=== PATIENT | female | born 1990 | race Caucasian/White ===

== ENCOUNTER 2019-12-21 11:59 | Inpatient (IN) | payer OTHER ==
[~2019-12-21 11:59] MED LIST: Bupivacaine/Epinephrine 0.25% 30 ML VIAL ONE
[2019-12-21 12:40] VITALS: BMI 40.2
[2019-12-21] MEDS ORDERED: hydrALAZINE 20 MG/ML VIAL SLOW IVP PRN ×3 (13:21→23:58)
[2019-12-21] MEDS ORDERED: Lidocaine 1% (PF) 30 ML VIAL SC PRN (13:21)
[2019-12-21] MEDS ORDERED: Ibuprofen 800 MG TAB PO PRN (13:21)
[2019-12-21] MEDS ORDERED: Ondansetron PF 4 MG/2 ML Vial IVP PRN ×3 (13:21→23:58)
[2019-12-21] MEDS ORDERED: Butorphanol Tartrate 1 MG/ML VIAL SLOW IVP PRN (13:21)
[2019-12-21] MEDS ORDERED: Promethazine HCl 25 MG/ML VIAL IM PRN ×2 (13:21→18:12)
[2019-12-21] MEDS ORDERED: HYDROcodone/Acetaminophen 5/325 mg Tablet PO PRN ×4 (13:21→23:58)
--- NOTE | 2019-12-21 13:25 | PDOC.LDHP ---
Labor and Delivery H&P Chief complaint: other (PIH, mild preeclampsia) HPI: Pt presented to routine visit this AM in clinic w BP 140/90s and +1 protein. Pt with persistent elevation of BP noted in L and D. Current gestational age (weeks): 37 Due date: 01/08/20 Dating criteria: last menstrual period, first trimester ultrasound Grav: 2 Para: 1 OB History Details: x 1 Current complications: gestational diabetes (diet controlled), preeclampsia without severe features Abnormal US findings: No Past Medical History: asthma, anxiety, anemia Current medications: pre- vitamins, other (zoloft) Previous surgical history: none, other (wrist) Allergies/Adverse Reactions: Allergies Allergy/AdvReac Type Severity Reaction Status Date / Time doxycycline Allergy Verified 12/21/19 12:27 minocycline Allergy Verified 12/21/19 12:27 Penicillins Allergy Verified 12/21/19 12:27 Social history: none - Physical Exam Abnormal vital signs: 130-140/80-90s General: NAD, resting Heart: RRR Lungs: CTAB Abdomen: gravid Extremeties: no edema FHT: category 1 - Vaginal Exam cm dilated: 2 Effacement: 75% Station: -2 - OB Labs Blood type: B RH: positive Antibody Screen: negative HIV: negative RPR: negative HEPSAg: negative 3 hour GTT: POSITIVE GBS: negative Rubella: immune - Assessment L&D Assessment: medically indicated induction (preeclampsia without severe features) - Plan Plan: admit to L&D, labor augmentation if indicated, informed consent obtained, anesthesia consult for pain management -: A/P: 29yo @ 37.3 weeks with A1GMD and preeclampsia without severe features. Plan for IOL today, magnesium if severe features noted.
[2019-12-21] MEDS ORDERED: NS w/ Oxytocin 10 units 500 ML IV SCH ×2 (13:30)
[2019-12-21 13:52] LABS: Carbon Dioxide 18 mmol/L (22-29); Chloride 106 mmol/L (98-107); Potassium 4.4 mmol/L (3.5-5.1); Sodium 135 mmol/L (136-145)
[2019-12-21 13:53] LABS: ALT (SGPT) 23 U/L (8-55); AST (SGOT) 24 U/L (5-34); Albumin 3.5 g/dL (3.5-5.0); Alkaline Phosphatase 217 U/L (40-110); Anion Gap 15 mmol/L (10-20); BUN (Urea Nitrogen) 23 mg/dL (7.0-18.7); Bilirubin, Total 0.2 mg/dL (0.2-1.2); Calc. Creatinine Clearance 159 mL/min (70-130); Calcium 9.7 mg/dL (7.8-10.44); Estimated GFR-MDRD 82; Globulin 3.1 g/dL (2.4-3.5); Glucose 73 mg/dL (70-105); Protein, Total 6.6 g/dL (6.0-8.3)
[2019-12-21 13:53] LABS: Hemoglobin 13.1 g/dL (12.0-16.0); White Blood Cell (WBC) Count 6.8 thou/uL (4.8-10.8)
[2019-12-21 13:54] LABS: Mean Corpuscular HGB CONC 34.9 g/dL (32.0-36.0); Mean Corpuscular Hemoglobin 29.2 pg (27.0-31.0); Mean Corpuscular Volume 83.7 fL (78.0-98.0); Mean Platelet Volume 8.9 fL (7.4-10.4); Platelet Count 142 thou/uL (130-400); RBC Distribution Width 13.8 % (11.5-14.5)
[2019-12-21 13:56] LABS: %Basophils 0.5 % (0.0-1.0); %Eosinophils 0.6 % (0.0-10.0); %Lymphocytes 24.6 % (21.0-51.0); %Monocytes 7.9 % (0.0-10.0); %Neutrophils 66.5 % (42.0-75.0)
[2019-12-21 13:57] LABS: #Lymphocytes 1.7 thou/uL (1.20-3.40); #Monocytes 0.5 thou/uL (0.11-0.59); #Neutrophils 4.5 thou/uL (1.40-6.50)
--- NOTE | 2019-12-21 15:37 | PDOC.LDPN ---
Labor & Delivery Progress Note - Subjective Subjective: comfortable - Objective Vital signs reviewed and normal: yes General: resting Dilation: 3 Effacement: 75% Station: 0 FHT: category 1 AROM: clear fluid - Assessment (1) Gestational diabetes Code(s): O24.419 - GESTATIONAL DIABETES MELLITUS IN , UNSP CONTROL Current Visit: Yes Status: Acute (2) 37 weeks gestation of Code(s): Z3A.37 - 37 WEEKS GESTATION OF Current Visit: Yes Status : Acute (3) Preeclampsia Code(s): O14.90 - UNSPECIFIED PRE-ECLAMPSIA, UNSPECIFIED TRIMESTER Current Visit: Yes Status: Acute -: A?P: P2 @ 37.3 IOL for preeclampsia without severe features at term. SVE / , amniotomy for active management of labor/IOL. FHT reassuring. Plan of care and indications for magnesium for severe features reviewed.
[2019-12-21 15:38] LABS: Syphilis Antibody Nonreactive (Nonreactive); Syphilis Antibody Index 0.04 S/CO (<1.00 Non-Reactive)
[2019-12-21 15:39] LABS: HBSAg Index 0.15 S/CO (0-0.99); Hep B Surf Ag Non-Reactive S/CO (NonReactive)
[2019-12-21] MEDS ORDERED: Fentanyl 4 mcg/Bup 0.1% Cadd 100 ML ONE (16:29)
[2019-12-21] MEDS: Lactated Ringer's 1,000 ML IV SCH (17:54)
[2019-12-21] MEDS ORDERED: Acetaminophen 325 MG TAB PO PRN (18:12)
[2019-12-21] MEDS ORDERED: EPHEDRINE 25 MG/5 ML SYRINGE SLOW IVP PRN (18:12)
[2019-12-21] MEDS ORDERED: Naloxone HCl 0.4 mg/ml Vial IVP PRN ×2 (18:12)
[2019-12-21] MEDS ORDERED: Lactated Ringer's 500 ML IV PRN (18:12)
[2019-12-21] MEDS ORDERED: diphenhydrAMINE 50 MG/ML VIAL IVP PRN (18:12)
[2019-12-21] MEDS ORDERED: Fentanyl 4 mcg/Bupivacaine 0.1% Cassette 100 ML EPIDURAL SCH (18:15)
[2019-12-21] MEDS ORDERED: Communication Order-Pharmacy FS SCH (18:15)
[2019-12-21] MEDS: NS / Oxytocin 40 units/1000ml 1,000 ML IV PRN ×2 (21:45→23:11)
--- NOTE | 2019-12-21 21:53 | PDOC.OPDEL ---
OB Operative/Delivery Note Delivery Dr/Surgeon: Jv Pre-Delivery Diagnosis: medically indicated induction (preeclampsia without severe features) Procedure/Post Delivery Dx: spontaneous vaginal delivery Weeks gestation: 37 Anesthesia: epidural - Findings A Sex: male - 1 min: 8 - 5 min: 9 - Additional Findings/Plan Placenta delivered: spontaneous Repaired Obstetrical Laceration: 2nd degree Estimated blood loss: 125ml Post delivery plan: routine recovery
[2019-12-21] MEDS ORDERED: Benzocaine-Menthol 82.5 ML CAN TOP PRN (23:58)
[2019-12-21] MEDS ORDERED: Milk Of Magnesia 30 ML UDCUP PO PRN (23:58)
[2019-12-21] MEDS ORDERED: Preparation H Ointment 28 GM TUBE PR PRN (23:58)
[2019-12-21] MEDS ORDERED: diphenhydrAMINE 25 MG CAP PO PRN (23:58)
[2019-12-21] MEDS ORDERED: NS / Oxytocin 40 units/1000ml 1,000 ML IV SCH (23:58)
[2019-12-21] MEDS ORDERED: Bisacodyl 10 MG SUPP PR PRN (23:58)
[2019-12-22] MEDS ORDERED: Ibuprofen 800 MG TAB PO SCH (01:00)
[2019-12-22] MEDS: Ibuprofen 800 MG TAB PO SCH ×3 (05:43→21:46)
[2019-12-22] MEDS: Lactated Ringer's 1,000 ML IV SCH (07:02)
[2019-12-22 07:51] LABS: Mean Corpuscular HGB CONC 34.3 g/dL (32.0-36.0); Mean Corpuscular Hemoglobin 29.2 pg (27.0-31.0); Mean Corpuscular Volume 84.9 fL (78.0-98.0); Mean Platelet Volume 8.5 fL (7.4-10.4); Platelet Count 111 thou/uL (130-400); RBC Distribution Width 13.7 % (11.5-14.5); Red Blood Cell (RBC) Count 3.78 mill/uL (4.20-5.40); White Blood Cell (WBC) Count 7.3 thou/uL (4.8-10.8)
--- NOTE | 2019-12-22 08:35 | PDOC.PP ---
Post Progress Note Post Day #: 1 Subjective: doing well, no concerns, normal lochia, pumping PO intake tolerated: yes Flatus: yes Ambulation: yes Vital Signs (12 hours) Temp Pulse Resp BP Pulse Ox 12/22/19 07:44 97.8 F 76 20 130/88 97 12/22/19 05:34 97.6 F 66 20 152/70 H 99 12/22/19 02:28 97.9 F 73 18 126/76 96 12/22/19 01:24 98.2 F 71 18 121/70 97 12/22/19 00:15 97.7 F 66 18 150/73 H 99 Weight Weight 220 lb - Physical Examination General: NAD Respiratory: non-labored breathing Abdominal: no distention Fundus firm & at: below umb Skin: no rash Psychiatric: A&Ox3, normal affect Result Diagrams: 12/22/19 05:58 12/21/19 12:53 Additional Labs: Post Labs Blood Type B POSITIVE 12/21/19 14:41 Hep Bs Antigen Non-Reactive S/CO (NonReactive) 12/21/19 14:41 (1) Gestational diabetes Code(s): O24.419 - GESTATIONAL DIABETES MELLITUS IN , UNSP CONTROL Status: Acute (2) 37 weeks gestation of Code(s): Z3A.37 - 37 WEEKS GESTATION OF Status: Acute (3) Preeclampsia Code(s): O14.90 - UNSPECIFIED PRE-ECLAMPSIA, UNSPECIFIED TRIMESTER Status: Acute - Assessment/Plan PPD1 sp after IOL @ 37+ weeks for preeclampsia without severe features. No concerns, BP mild range, likely DC tomorrow.
[2019-12-22] MEDS ORDERED: Adacel (T-DAP) 0.5 ML SYRINGE IM ONE (09:00)
[2019-12-22] MEDS: Prenatal Vitamin 1 TAB PO SCH (09:01)
[2019-12-22] MEDS: Docusate Calcium (SURFAK) 240 MG CAP PO SCH ×2 (09:02→21:46)
[2019-12-22] MEDS: Ferrous Sulfate 325 MG TAB PO SCH ×2 (09:02→17:36)
[2019-12-23] MEDS: Ibuprofen 800 MG TAB PO SCH ×2 (05:34→13:43)
[2019-12-23] MEDS: Docusate Calcium (SURFAK) 240 MG CAP PO SCH (07:53)
[2019-12-23] MEDS: Prenatal Vitamin 1 TAB PO SCH (07:54)
[2019-12-23] MEDS: Ferrous Sulfate 325 MG TAB PO SCH (07:55)
[2019-12-23 08:15] VITALS: BP 111/63; TEMP 97.6
--- NOTE | 2019-12-23 08:44 | PDOC.PP ---
Post Progress Note Post Day #: 2 Subjective: doing well, no concerns, no PIH sx PO intake tolerated: yes Flatus: yes Ambulation: yes Vital Signs (12 hours) Temp Pulse Resp BP Pulse Ox 12/23/19 07:58 97.6 F 82 16 111/63 98 12/23/19 00:14 98.0 F 77 14 128/70 98 Weight Weight 220 lb - Physical Examination General: NAD Respiratory: non-labored breathing Neurological: no gross focal deficits Psychiatric: A&Ox3, normal affect Result Diagrams: 12/22/19 05:58 12/21/19 12:53 Additional Labs: Post Labs Blood Type B POSITIVE 12/21/19 14:41 Hep Bs Antigen Non-Reactive S/CO (NonReactive) 12/21/19 14:41 (1) Gestational diabetes Code(s): O24.419 - GESTATIONAL DIABETES MELLITUS IN , UNSP CONTROL Status: Acute (2) 37 weeks gestation of Code(s): Z3A.37 - 37 WEEKS GESTATION OF Status: Acute (3) Preeclampsia Code(s): O14.90 - UNSPECIFIED PRE-ECLAMPSIA, UNSPECIFIED TRIMESTER Status: Acute - Assessment/Plan PPD 2 doing well, plan for DC today.
== END 2019-12-23 13:51 | disposition home or self-care (01) | DRG 807 ==
LOC: L&D/OP 11:59 → L&D 16:31 → 3SE 12-22 00:22
PROVIDERS: ADMIT Obstetrics & Gynecology; ATTEND Obstetrics & Gynecology
PROC: 10E0XZZ Delivery of Products of Conception, External Approach (ICD-10-PCS; principal; 2019-12-21)
PROC: 0KQM0ZZ Repair Perineum Muscle, Open Approach (ICD-10-PCS; 2019-12-21)
PROC: 10907ZC Drainage of Amniotic Fluid, Therapeutic from Products of Conception, Via Natural or Artificial Opening (ICD-10-PCS; 2019-12-21)
PROC: 3E033VJ Introduction of Other Hormone into Peripheral Vein, Percutaneous Approach (ICD-10-PCS; 2019-12-21)
DX: O14.04 Mild to moderate pre-eclampsia, complicating childbirth (principal); Z37.0 Single live birth; Z3A.37 37 weeks gestation of pregnancy; O24.420 Gestational diabetes mellitus in childbirth, diet controlled; O99.344 Other mental disorders complicating childbirth; O99.52 Diseases of the respiratory system complicating childbirth; J45.909 Unspecified asthma, uncomplicated; F41.9 Anxiety disorder, unspecified; O99.02 Anemia complicating childbirth; D64.9 Anemia, unspecified; O70.1 Second degree perineal laceration during delivery; Z88.0 Allergy status to penicillin; Z88.1 Allergy status to other antibiotic agents
CPT/HCPCS: 36415; 36416; 51702; 85027; 86780; 86850; 86900; 86901; 87340; J2405; J2590